=== PATIENT | male | born 1945 | race Caucasian/White ===

== ENCOUNTER 2019-11-24 14:46 | Emergency (ER) | payer MEDICARE ==
[~2019-11-24] VITALS: Ht 188 cm; Wt 138.5 kg
[~2019-11-24 14:46] MED LIST: ASPI-496 PO; ATEN50TA41 PO; ATOR20TA37 PO; HYDR-3245 PO; LISI-167 PO; MORP30TA81 PO; OMEG1CAP6 PO; OXYC-302 PO
--- NOTE | 2019-11-24 14:56 | NUR ---
Pt arrives from home for decreased urination. Pt recently had uncontrolled urination and was put on medication help aleviate that. Pt reports he stopped voiding so he stopped taking the medication. pt reports he has to urinate frequently and is unable to urinate more than drops or 1 ounce. Pt denies any other symptoms, pt reports minimal bladder pain. Pt asked to get into gown so RN may collect urine specimen.
--- NOTE | 2019-11-24 15:15 | NUR ---
Pt bladder scanned post void and read as 0 mls.
[2019-11-24 15:17] LABS: BASOPHILS # (AUTO) 0.02 x10^3/uL (0-0.1); BASOPHILS % (AUTO) 0 % (0-1); EOSINOPHILS % (AUTO) 2 % (1-7); LYMPHOCYTES # (AUTO) 2.13 x10^3/uL (1-3.4); LYMPHOCYTES % (AUTO) 16 % (22-44); MD NO; MEAN CORPUSCULAR HEMOGLOBIN 31.6 pg (27.5-34.5); MEAN CORPUSCULAR VOLUME 95.8 fL (81-97); MEAN PLATELET VOLUME 7.6 fL (7.4-10.4); MONOCYTES # (AUTO) 0.81 x10^3/uL (0.2-0.8); MONOCYTES % (AUTO) 6 % (2-9); NEUTROPHILS # (AUTO) 9.87 x10^3/uL (1.8-6.8); NEUTROPHILS % (AUTO) 75 % (42-75); PLATELET COUNT 268 x10^3/uL (130-400); RED BLOOD COUNT 5.42 x10^6/uL (4.38-5.82); RED CELL DISTRIBUTION WIDTH 13.7 % (9.4-14.8)
[2019-11-24 15:24] LABS: ALBUMIN 3.5 g/dL (3.4-5.0); ANION GAP 9 mmol/L (5-15); CALCIUM 8.7 mg/dL (8.5-10.1); CHLORIDE 107 mmol/L (98-107)
[2019-11-24 15:28] VITALS: BP 151/70
[2019-11-24 15:38] LABS: MICROSCOPIC AUTO
[2019-11-24] MEDS ORDERED: CEFTRIAXONE 1,000 MG IM ONE (16:00)
[2019-11-24] MEDS ORDERED: CEFTRIAXONE 1,000 MG ONE (16:03)
[2019-11-24] MEDS ORDERED: LIDOCAINE-MPF 1%, 5ML ONE (16:03)
--- NOTE | 2019-11-24 16:30 | NUR ---
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 Pt getting dressed at this time.
--- NOTE | 2019-11-24 16:32 | NUR ---
Patient/Caregiver given discharge instructions and they have confirmed that they understand the instructions. Patient ambulatory with steady gait.
== END 2019-11-24 17:16 | disposition home or self-care (01) ==
LOC: ED 16:14
DX: N30.01 Acute cystitis with hematuria (principal); I10 Essential (primary) hypertension; E78.5 Hyperlipidemia, unspecified
CPT/HCPCS: 36415; 80048; 81001; 82040; 85025; 87086; 96372; 99284; J0696; 87077

== ENCOUNTER 2019-12-28 09:40 | Emergency (ER) | payer MEDICARE ==
[~2019-12-28] VITALS: Ht 188 cm; Wt 128.0 kg
[~2019-12-28 09:40] MED LIST changes: +ASPI500T16 PO; +FINA5TAB4 PO; +LINE600T15 PO; +LISI-170 PO
--- NOTE | 2019-12-28 11:08 | NUR ---
Pt with new bobo placed, UO is blood tinged, 1100 output at this time.
[2019-12-28 11:09] LABS: MICROSCOPIC INDICATED
[2019-12-28 11:10] LABS: BASOPHILS # (AUTO) 0.03 x10^3/uL (0-0.1); BASOPHILS % (AUTO) 0 % (0-1); EOSINOPHILS # (AUTO) 0.28 x10^3/uL (0-0.4); EOSINOPHILS % (AUTO) 2 % (1-7); LYMPHOCYTES # (AUTO) 2.32 x10^3/uL (1-3.4); LYMPHOCYTES % (AUTO) 19 % (22-44); MD NO; MEAN CORPUSCULAR HEMOGLOBIN 31.1 pg (27.5-34.5); MEAN CORPUSCULAR HGB CONC 32.3 g/dL (33.2-36.2); MEAN CORPUSCULAR VOLUME 96.2 fL (81-97); MEAN PLATELET VOLUME 7.3 fL (7.4-10.4); MONOCYTES # (AUTO) 0.81 x10^3/uL (0.2-0.8); MONOCYTES % (AUTO) 7 % (2-9); NEUTROPHILS # (AUTO) 8.84 x10^3/uL (1.8-6.8); NEUTROPHILS % (AUTO) 72 % (42-75); PLATELET COUNT 308 x10^3/uL (130-400); RED BLOOD COUNT 4.73 x10^6/uL (4.38-5.82); RED CELL DISTRIBUTION WIDTH 14.3 % (9.4-14.8)
[2019-12-28 11:20] LABS: ALANINE AMINOTRANSFERASE 25 U/L (12-78); ALBUMIN 2.9 g/dL (3.4-5.0); ANION GAP 10 mmol/L (5-15); CALCIUM 9.1 mg/dL (8.5-10.1); CHLORIDE 106 mmol/L (98-107); CREATININE 0.84 mg/dL (0.7-1.3)
[2019-12-28 11:22] LABS: ALKALINE PHOSPHATASE 87 U/L (45-117); BILIRUBIN,TOTAL 0.4 mg/dL (0.2-1.0); TOTAL PROTEIN 6.7 g/dL (6.4-8.2)
[2019-12-28] MEDS ORDERED: CEFTRIAXONE 1,000 MG IM ONE (12:30)
[2019-12-28] MEDS ORDERED: CEFTRIAXONE 1,000 MG ONE (12:33)
[2019-12-28] MEDS ORDERED: LIDOCAINE-MPF 1%, 5ML ONE (12:42)
[2019-12-28 12:48] VITALS: BP 98/57
--- NOTE | 2019-12-28 12:52 | NUR ---
Pt tto be DC'd, urine more clear. Home with bobo, urology appt shira.
== END 2019-12-28 13:07 | disposition home or self-care (01) ==
LOC: ED 10:30
DX: N30.01 Acute cystitis with hematuria (principal); R00.0 Tachycardia, unspecified; I10 Essential (primary) hypertension; E78.5 Hyperlipidemia, unspecified
CPT/HCPCS: 36415; 80053; 81001; 85025; 87077; 87086; 87186; 93005; 96372; 99284; J0696

== ENCOUNTER → 2020-02-04 | Outpatient (CLI) | payer MEDICARE ==
[~2020-02-04] MED LIST changes: +B2/V1TAB PO; +BUPR300T94 PO; +CHOL10003 PO; +DOCU-131 PO; +FLUT1BLS3 IH; +FURO-93 PO; +GLUC1CAP48 PO; +HYDR-3237 PO; +ICY HOT; +MULT-717 PO; +TAMS-11 PO; +[UNRECOGNIZED DRUG - OTHER]
== END | disposition home or self-care (01) ==
LOC: STAR 10:54
PROVIDERS: ATTEND Urology
DX: Z01.812 Encounter for preprocedural laboratory examination (principal); Z20.828 Contact with and (suspected) exposure to other viral communicable diseases; N40.1 Benign prostatic hyperplasia with lower urinary tract symptoms; I44.7 Left bundle-branch block, unspecified
CPT/HCPCS: 36415; 87635; 93005

== ENCOUNTER 2020-02-08 06:29 | Observation (INO) | payer MEDICARE ==
[~2020-02-08] VITALS: Ht 188 cm; Wt 135.3 kg
[2020-02-08] MEDS ORDERED: CHLORHEXIDINE 15 ML UDC MM ONE (07:00)
[2020-02-08] MEDS ORDERED: LACTATED RINGERS 1,000 ML IV SCH (07:00)
[2020-02-08] MEDS ORDERED: MV-M1TAB16 PO (07:11)
[2020-02-08] MEDS ORDERED: HYDR-3245 PO (07:11)
[2020-02-08] MEDS ORDERED: VITAMIN D3 PO (07:17)
[2020-02-08] MEDS ORDERED: FENTANYL PF 250 MCG/5ML ONE (08:15)
[2020-02-08] MEDS ORDERED: LIDOCAINE PF 2%, 5ML ONE (08:27)
[2020-02-08] MEDS ORDERED: [UNRECOGNIZED DRUG - OTHER] IVPB ONE (08:27)
[2020-02-08] MEDS ORDERED: PROMETHAZINE 25 MG/ML, 1ML IVPush PRN (09:00)
[2020-02-08] MEDS ORDERED: PROMETHAZINE 25 MG SUPP PR PRN (09:00)
[2020-02-08] MEDS ORDERED: ONDANSETRON 2MG/ML, 2ML IVPush PRN (09:00)
[2020-02-08] MEDS ORDERED: HYDROmorphone 1 MG/ML, 1ML INJ IVPush PRN (09:00)
[2020-02-08] MEDS ORDERED: ENALAPRILAT 1.25 MG/ML, 2ML IV PRN (09:00)
[2020-02-08] MEDS ORDERED: hydrALAzine 20 MG/ML, 1ML IV PRN (09:00)
[2020-02-08] MEDS ORDERED: ACETAMINOPHEN 325 MG TABLET PO PRN (09:00)
[2020-02-08] MEDS ORDERED: OXYcodone 5 MG/5 ML ORAL.SOL UDC PO PRN (09:00)
[2020-02-08] MEDS ORDERED: LABETALOL 5MG/ML, 20ML IV PRN (09:00)
[2020-02-08] MEDS ORDERED: METHOCARBAMOL 1,000 MG in DEXTROSE 5% 100 ML IV PRN (09:00)
[2020-02-08] MEDS ORDERED: FENTANYL PF 100 MCG/2ML IV PRN (09:00)
[2020-02-08] MEDS ORDERED: NEOSTIGMINE 1 MG/ML, 10ML ONE (09:38)
[2020-02-08] MEDS ORDERED: SUCCINYLCHOLINE 20 MG/ML, 10ML ONE (09:38)
[2020-02-08] MEDS ORDERED: ONDANSETRON 2MG/ML, 2ML ONE (09:38)
[2020-02-08] MEDS ORDERED: CEFAZOLIN 1,000 MG ONE (09:38)
[2020-02-08] MEDS ORDERED: GLYCOPYRROLATE 0.2MG/1ML, 5ML ONE (09:38)
[2020-02-08] MEDS ORDERED: DEXAMETHASONE 4 MG/ML, 1ML ONE (09:38)
[2020-02-08] MEDS ORDERED: PROPOFOL 10 MG/ML, 20ML ONE (09:38)
[2020-02-08] MEDS ORDERED: ROCURONIUM 10MG/ML,5ML ONE (09:38)
[2020-02-08] MEDS ORDERED: OXYcodone/APAP 5/325MG TABLET PO PRN (10:00)
[2020-02-08] MEDS ORDERED: ONDANSETRON 2MG/ML, 2ML IV PRN (10:00)
[2020-02-08] MEDS ORDERED: OPIUM/BELLADONNA SUPP.RECT 16.2-60 MG PR ONE (10:09)
[2020-02-08] MEDS ORDERED: ACETAMINOPHEN 650 MG/20.3 ML UDC ONE (10:11)
[2020-02-08] MEDS ORDERED: OXYcodone 5 MG/5 ML ORAL.SOL UDC ONE (10:12)
[2020-02-08] MEDS ORDERED: FENTANYL PF 100 MCG/2ML ONE (10:12)
[2020-02-08] MEDS ORDERED: OPIUM/BELLADONNA SUPP.RECT 16.2-60 MG ONE (10:12)
[2020-02-08 12:00] VITALS: BP 99/65
[2020-02-08] MEDS: HYDROcodone/APAP 10/325 MG TABLET PO PRN ×3 (14:11→23:54)
[2020-02-08 19:43] VITALS: BP 124/71
[2020-02-08] MEDS: BUPROPION SR 150 MG TABLET PO SCH (19:58)
[2020-02-08] MEDS ORDERED: ATORVASTATIN 20 MG TABLET PO SCH (21:00)
[2020-02-08 23:07] VITALS: BP 142/77
[2020-02-09 03:31] VITALS: BP 151/81
[2020-02-09] MEDS: HYDROcodone/APAP 10/325 MG TABLET PO PRN ×3 (04:17→12:12)
[2020-02-09] MEDS ORDERED: ATENOLOL 50 MG TABLET PO SCH (06:00)
[2020-02-09 07:50] VITALS: BP 93/52
[2020-02-09] MEDS: BUPROPION SR 150 MG TABLET PO SCH (08:09)
[2020-02-09] MEDS ORDERED: MULTIVITAMINS/MINERALS TABLET PO SCH (09:00)
[2020-02-09] MEDS ORDERED: FINASTERIDE 5 MG TABLET PO SCH (09:00)
[2020-02-09] MEDS ORDERED: LISINOPRIL 20 MG TABLET PO SCH (09:00)
[2020-02-09] MEDS ORDERED: TRELEGY ELLIPTA INH SCH (09:00)
[2020-02-09] MEDS ORDERED: CHOLECALCIFEROL 1,000 UNIT TABLET PO SCH (09:00)
[2020-02-09] MEDS ORDERED: FUROSEMIDE 40 MG TABLET PO SCH (09:00)
[2020-02-09] MEDS ORDERED: OMEGA-3/FISH OIL CAPSULE PO SCH (09:00)
[2020-02-09] MEDS ORDERED: DOCUSATE 100 MG CAPSULE PO SCH (09:00)
[2020-02-09] MEDS ORDERED: TAMSULOSIN 0.4 MG CAP.ER.24H PO SCH (09:00)
== END 2020-02-09 12:40 | disposition home or self-care (01) ==
LOC: OUT 06:29 → ORIP 09:52 → 4NE 11:37
PROVIDERS: ADMIT Urology; ATTEND Urology
DX: N40.1 Benign prostatic hyperplasia with lower urinary tract symptoms (principal); Z20.828 Contact with and (suspected) exposure to other viral communicable diseases; R33.8 Other retention of urine; E11.9 Type 2 diabetes mellitus without complications; E78.00 Pure hypercholesterolemia, unspecified; M19.90 Unspecified osteoarthritis, unspecified site; N39.0 Urinary tract infection, site not specified; B37.2 Candidiasis of skin and nail; J44.9 Chronic obstructive pulmonary disease, unspecified; I48.91 Unspecified atrial fibrillation; I44.7 Left bundle-branch block, unspecified; Z79.899 Other long term (current) drug therapy; Z87.440 Personal history of urinary (tract) infections; Z87.891 Personal history of nicotine dependence
CPT/HCPCS: 52601; 88305; 94640; G0378; J0690; J0694; J1100; J2405; J2704; J2710; J3010; J7120; J0330